=== PATIENT | female | born 1970 | race Caucasian/White ===

== ENCOUNTER 2019-03-09 16:43 | Emergency (ER) | payer OTHER ==
[~2019-03-09] VITALS: Ht 165.1 cm; Wt 138.8 kg
[~2019-03-09 16:43] MED LIST: ATOR20TA37 PO; CIPR500T87 PO; INSU100V13 SQ-INSULIN; LEVO112T2 PO; LEVO25TA2 PO; LISI2.5T PO; METF10002 PO; OXYC-302 PO; POLY17PO5 PO; TRAM50TA2 PO
[2019-03-09] MEDS ORDERED: GLIM4TAB2 PO (17:11)
--- NOTE | 2019-03-09 17:15 | NUR ---
PT TO ED FOR ABSCESS TO R FOREARM X4 DAYS. PT COMPLIANT WITH OUTPT ABX (DOXYCYCLINE 100MG BID) WITHOUT IMPROVEMENT. EDPA AND EDMD TO BS FOR ASSESSMENT. PLAN FOR I&D. CONNECTED TO MONITOR. VSS. AWAITING FURTHER ORDERS.
[2019-03-09] MEDS ORDERED: LIDOCAINE-MPF 1%, 5ML ONE (17:17)
[2019-03-09 17:30] LABS: BASOPHILS # (AUTO) 0.06 x10^3/uL (0-0.1); BASOPHILS % (AUTO) 1 % (0-1); EOSINOPHILS # (AUTO) 0.24 x10^3/uL (0-0.4); EOSINOPHILS % (AUTO) 3 % (1-7); LYMPHOCYTES % (AUTO) 27 % (22-44); MD NO; MEAN CORPUSCULAR HGB CONC 34.7 g/dL (32.4-35.8); MEAN CORPUSCULAR VOLUME 89.5 fL (80-100); MEAN PLATELET VOLUME 8.7 fL (7.4-10.4); MONOCYTES # (AUTO) 0.33 x10^3/uL (0.2-0.8); MONOCYTES % (AUTO) 4 % (2-9); NEUTROPHILS # (AUTO) 5.56 x10^3/uL (1.8-6.8); NEUTROPHILS % (AUTO) 66 % (42-75); PLATELET COUNT 285 x10^3/uL (130-400); RED BLOOD COUNT 4.37 x10^6/uL (3.82-5.3); RED CELL DISTRIBUTION WIDTH 14.5 % (9.6-15.2)
[2019-03-09] MEDS ORDERED: LIDOCAINE-MPF 1%, 5ML INFIL ONE (17:30)
--- NOTE | 2019-03-09 17:31 | NUR ---
PA TO BS TO [place] WOUND.
[2019-03-09 17:40] VITALS: BP 130/76
[2019-03-09 17:42] LABS: ALBUMIN 3.9 g/dL (3.4-5.0); ANION GAP 7 mmol/L (5-15); CALCIUM 8.4 mg/dL (8.5-10.1); CHLORIDE 105 mmol/L (98-107); CREATININE 0.92 mg/dL (0.55-1.02)
[2019-03-09] MEDS ORDERED: CLINDAMYCIN 300 MG CAPSULE ONE (17:44)
--- NOTE | 2019-03-09 17:54 | NUR ---
PT EMDICATED PER JAN.
[2019-03-09] MEDS ORDERED: CLINDAMYCIN 300 MG CAPSULE PO ONE (18:00)
[2019-03-09] MEDS ORDERED: ONDANSETRON ODT 4 MG ONE (18:09)
[2019-03-09] MEDS ORDERED: ONDANSETRON ODT 4 MG PO ONE (18:30)
== END 2019-03-09 18:27 | disposition home or self-care (01) ==
LOC: ED 18:23
DX: L03.113 Cellulitis of right upper limb (principal); E11.65 Type 2 diabetes mellitus with hyperglycemia; I10 Essential (primary) hypertension
CPT/HCPCS: 10060; 36415; 80048; 82040; 85025; 99283; Q0162

== ENCOUNTER 2019-03-11 11:49 | Emergency (ER) | payer OTHER ==
[~2019-03-11] VITALS: Ht 165.1 cm; Wt 138.0 kg
[~2019-03-11 11:49] MED LIST changes: +GLIM4TAB2 PO
[2019-03-11 12:00] VITALS: BP 146/90
--- NOTE | 2019-03-11 12:12 | NUR ---
PT HERE FOR RIGHT WOUND ABCESS RECHECK. PT HAD PACKING REMOVED BY PA. NO S/SX OF INFECTION AROUND WOUND. APPEARTS TO BE HEALING WELL.
--- NOTE | 2019-03-11 12:23 | NUR ---
Patient/Caregiver given discharge instructions and they have confirmed that they understand the instructions. Patient ambulatory with steady gait.
== END 2019-03-11 12:25 | disposition home or self-care (01) ==
LOC: ED 12:24
DX: L02.413 Cutaneous abscess of right upper limb (principal); E03.9 Hypothyroidism, unspecified; E78.00 Pure hypercholesterolemia, unspecified; I10 Essential (primary) hypertension; F17.200 Nicotine dependence, unspecified, uncomplicated
CPT/HCPCS: 99281